=== PATIENT | male | born 1965 | race Caucasian/White ===

== ENCOUNTER 2023-07-04 13:31 | Inpatient (IN) ==
[2023-07-04 14:53] LABS: ABS Basophils 0.1 10^3/uL (0.0-0.1); ABS Eosinophils 0.2 10^3/uL (0.0-0.5); ABS Lymphocytes 1.2 10^3/uL (1.0-4.8); ABS Monocytes 0.5 10^3/uL (0.0-1.1); ABS Neutrophils 4.7 10^3/uL (1.5-7.6); Eosinophil % 3.5 %; Hematocrit 39.7 % (38-53); Hemoglobin 13.6 g/dL (13.2-16.3); Lymphocyte % 18.6 %; Mean Corpuscular Hemoglobin 33.8 pg (27-33); Mean Corpuscular Hgb Conc 34.3 g/dL (31-36); Mean Corpuscular Volume 98.4 fL (80-97); Mean Platelet Volume 7.5 fL (7.5-11.2); Nucleated Red Blood Cells % 0.1 /100 WBC (0.0-0.4); Platelet Count 329 10^3/uL (150-450); Red Blood Count 4.03 10^6/uL (4.06-5.63); Red Cell Distribution Width 13.5 % (12-17); White Blood Count 6.7 10^3/uL (3.6-10.2)
[2023-07-04 15:12] LABS: Albumin 4.5 g/dL (3.2-5.2); Albumin/Globulin Ratio 1.5 (1-3); Calcium 9.5 mg/dL (8.6-10.3); Creatinine, Serum 0.92 mg/dL (0.67-1.17); Potassium 4.1 mmol/L (3.5-5.0); Total Bilirubin 0.3 mg/dL (0.2-1.0); Total Protein 7.5 g/dL (6.4-8.9); eGFR CKD-EPI 97.6 (>60)
[2023-07-04 15:42] LABS: Lithium 1.23 mmol/L (0.6-1.2)
[2023-07-04 15:43] LABS: Phenytoin 32.4 mcg/mL (10-20)
[2023-07-04] MEDS ORDERED: Senna TAB 8.6 mg TAB PO PRN (17:45)
[2023-07-04] MEDS ORDERED: Vancomycin 1,000 MG in NS 0.9% 250 ml 250 ML IVPB SCH (18:00)
[2023-07-04] MEDS ORDERED: Vancomycin per Pharmacy 1 EA NOTE FOLLOW UP PRN (18:17)
[2023-07-04] MEDS ORDERED: Vancomycin 1,500 MG in NS 0.9% 250 ml 250 ML IVPB ONE (18:30)
[2023-07-04] MEDS ORDERED: Fluticasone Propionate 1 PUFF/50 MCG DISKUS INH SCH (19:00)
[2023-07-04] MEDS ORDERED: NS 0.9% 1000 ml BAG 1,000 ML IV SCH (19:00)
[2023-07-05] MEDS: Vancomycin 1,500 MG in NS 0.9% 250 ml 250 ML IVPB SCH ×2 (05:03→18:28)
[2023-07-05 05:51] LABS: ABS Eosinophils 0.2 10^3/uL (0.0-0.5); ABS Lymphocytes 1.3 10^3/uL (1.0-4.8); ABS Monocytes 0.6 10^3/uL (0.0-1.1); Eosinophil % 2.8 %; Hematocrit 37.1 % (38-53); Hemoglobin 12.8 g/dL (13.2-16.3); Lymphocyte % 15.4 %; Mean Corpuscular Hemoglobin 34.1 pg (27-33); Mean Corpuscular Hgb Conc 34.6 g/dL (31-36); Mean Corpuscular Volume 98.4 fL (80-97); Mean Platelet Volume 7.5 fL (7.5-11.2); Platelet Count 324 10^3/uL (150-450); Red Blood Count 3.77 10^6/uL (4.06-5.63); Red Cell Distribution Width 13.6 % (12-17); White Blood Count 8.1 10^3/uL (3.6-10.2)
[2023-07-05 06:09] LABS: Albumin/Globulin Ratio 1.3 (1-3); Calcium 8.8 mg/dL (8.6-10.3); Creatinine, Serum 0.89 mg/dL (0.67-1.17); Magnesium 1.8 mg/dL (1.9-2.7); Potassium 4.1 mmol/L (3.5-5.0); Total Bilirubin 0.5 mg/dL (0.2-1.0); eGFR CKD-EPI 100.6 (>60)
[2023-07-05 06:11] LABS: Phenytoin 29.4 mcg/mL (10-20)
[2023-07-05] MEDS ORDERED: Lorazepam PYXIS KEY PRN (18:03)
[2023-07-05] MEDS ORDERED: LORazepam 2 mg VIAL 1 ml IV PUSH PRN (18:03)
[2023-07-05] MEDS ORDERED: Phenytoin 100 mg ER CAP PO ONE (21:00)
[2023-07-05] MEDS: Lithium Carbonate ER 450mg TAB PO SCH (21:54)
[2023-07-06] MEDS ORDERED: Vancomycin Trough Check NOTE FOLLOW UP ONE (05:30)
[2023-07-06 05:35] LABS: ABS Eosinophils 0.3 10^3/uL (0.0-0.5); ABS Lymphocytes 1.6 10^3/uL (1.0-4.8); ABS Monocytes 0.6 10^3/uL (0.0-1.1); ABS Neutrophils 5.1 10^3/uL (1.5-7.6); ABS Nucleated RBC 0.01 10^3/ul; Eosinophil % 4.5 %; Hematocrit 33.2 % (38-53); Hemoglobin 11.7 g/dL (13.2-16.3); Lymphocyte % 20.8 %; Mean Corpuscular Hemoglobin 34.1 pg (27-33); Mean Corpuscular Hgb Conc 35.2 g/dL (31-36); Mean Platelet Volume 7.4 fL (7.5-11.2); Nucleated Red Blood Cells % 0.1 /100 WBC (0.0-0.4); Platelet Count 300 10^3/uL (150-450); Red Blood Count 3.43 10^6/uL (4.06-5.63); Red Cell Distribution Width 13.3 % (12-17); White Blood Count 7.7 10^3/uL (3.6-10.2)
[2023-07-06 05:50] LABS: Calcium 8.5 mg/dL (8.6-10.3); Creatinine, Serum 0.84 mg/dL (0.67-1.17); Magnesium 1.8 mg/dL (1.9-2.7); Potassium 3.5 mmol/L (3.5-5.0); eGFR CKD-EPI 102.3 (>60)
[2023-07-06 06:25] LABS: Lithium 0.77 mmol/L (0.6-1.2); Phenytoin 21.2 mcg/mL (10-20)
[2023-07-06 06:26] LABS: Vancomycin Trough 18.3 mcg/mL
[2023-07-06] MEDS ORDERED: Magnesium Sulfate 2 gm BAG 2 GM/50 ML BAG IVPB ONE (08:44)
[2023-07-06] MEDS: Vancomycin 1,500 MG in NS 0.9% 250 ml 250 ML IVPB SCH ×2 (08:47→17:36)
[2023-07-06] MEDS: Phenytoin 100 mg ER CAP PO SCH ×2 (10:15→20:52)
[2023-07-06] MEDS: Lithium Carbonate ER 450mg TAB PO SCH (20:52)
[2023-07-07] MEDS: Vancomycin 1,500 MG in NS 0.9% 250 ml 250 ML IVPB SCH (06:05)
[2023-07-07 06:55] LABS: Calcium 8.7 mg/dL (8.6-10.3); Creatinine, Serum 0.92 mg/dL (0.67-1.17); Magnesium 2.1 mg/dL (1.9-2.7); eGFR CKD-EPI 97.6 (>60)
[2023-07-07 06:59] LABS: Lithium 0.76 mmol/L (0.6-1.2); Phenytoin 21.4 mcg/mL (10-20)
[2023-07-07] MEDS: Phenytoin 100 mg ER CAP PO SCH (08:39)
[2023-07-07 13:39] VITALS: BP 145/72
[2023-07-07 14:16] LABS: Vitamin D Total 25(OH) 27.1 ng/mL (20-50)
[2023-07-08] MEDS ORDERED: Vancomycin Trough Check NOTE FOLLOW UP ONE (05:30)
== END 2023-07-07 17:25 | DRG 92 ==
LOC: ED 13:31 → EDHOLD 13:31 → MEDTELE 18:09
PROVIDERS: ADMIT Internal Medicine; ATTEND Internal Medicine